=== PATIENT | male | born 2000 | race Hispanic/Latino ===

== ENCOUNTER 2021-10-06 18:36 | Emergency (ER) | payer OTHER ==
--- NOTE | 2021-10-06 20:46 | Emergency Department Report ---
HPI - General Time Seen by Provider: 10/06/21 20:31 - HPI HPI: 21-year-old male with history of ADHD presents due to depression and family issues which are causing him significant distress. The patient states that [facility] and that his family has refused to talk to him or help him. He says he is now currently homeless and feels very depressed and hopeless. He has had fleeting thoughts of SI but denies any plan or active SI at this time. Denies homicidal ideation or hallucinations. He also denies any physical symptoms or complaints of any kind. He is fully vaccinated against COVID-19 but has not yet received a booster. ED Past Medical Hx - Past Medical History Previous Medical History?: Yes Additional medical history: ADHD - Social History Smoking Status: Current Every Day Smoker Substance Use Type: None - Medications Home Medications: Home Medications Medication Instructions Recorded Confirmed Last Taken Type Escitalopram Oxalate [Lexapro] 5 mg PO QDAY 30 Days #30 10/07/21 Unknown Rx ED Review of Systems ROS: Stated complaint: MENTAL HEALTH Other details as noted in HPI Comment: All other systems reviewed and negative Constitutional: denies: chills, fever Eyes: denies: eye pain, vision change ENT: denies: throat pain, congestion Respiratory: denies: cough, shortness of breath Cardiovascular: denies: chest pain, palpitations Gastrointestinal: denies: abdominal pain, nausea, vomiting Genitourinary: denies: dysuria, frequency Musculoskeletal: denies: back pain, arthralgia Skin: denies: rash, lesions Neurological: denies: headache, weakness, numbness Psychiatric: anxiety, depression, suicidal thoughts. denies: auditory hallucinations, visual hallucinations, homicidal thoughts Physical Exam - Physical Exam Vital Signs: Vital Signs 10/06/21 10/06/21 19:00 20:30 Temperature 98.3 F 98.5 F Pulse Rate 69 55 L Respiratory 18 18 Rate Blood Pressure 154/77 121/85 [Left] O2 Sat by Pulse 98 96 Oximetry Physical Exam: GENERAL: Well developed and well nourished. No acute distress. Flat affect. HEAD: Normocephalic. No obvious signs of trauma. ENT: Moist mucous membranes. EYES: Extraocular movements are intact. Pupils are equal round and reactive to light bilaterally NECK: Supple. Full ROM is intact. Trachea is midline. LUNGS: Nonlabored breathing. Equal chest rise bilaterally. Clear to auscultation bilaterally. CARDIOVASCULAR: Regular rate and rhythm. No murmurs or rubs. VASCULAR: Cap refill < 2 seconds ABDOMEN: Abdomen is soft and nondistended. There is no significant tenderness, guarding or rebound. SKIN: Skin is warm and dry NEURO: Patient is awake, alert, and oriented. shoe repairer II-XII grossly intact. No focal deficits. Normal motor and sensory exam throughout. Normal speech. MUSCULOSKELETAL: No obvious deformities. No significant tenderness. Normal ROM throughout. BACK/SPINE: No midline tenderness or step-offs of the C/T/L spine. No costovertebral angle tenderness. ED Course Vital Signs 10/06/21 10/06/21 19:00 20:30 Temperature 98.3 F 98.5 F Pulse Rate 69 55 L Respiratory 18 18 Rate Blood Pressure 154/77 121/85 [Left] O2 Sat by Pulse 98 96 Oximetry ED Medical Decision Making - Lab Data Result diagrams: 10/06/21 20:49 10/06/21 20:49 - Medical Decision Making 21-year-old male presents with depression and hopelessness with fleeting thoughts of suicide without plan. Although he denies wanting to kill himself right now he says he has been having fleeting thoughts of ending his life. He is afebrile and with normal vital signs. His physical examination is within normal limits. Given that the patient has no active SI/HI or hallucinations, I do not feel that 1013 order is appropriate at this time. However, I will place an ED hold and have the patient evaluated by the mental health/psychiatry team for further recommendations regarding disposition once medically cleared. Medical clearance labs have been ordered Labs have resulted and reveal no significant leukocytosis or anemia. Creatinine is within normal range and there are no significant electrolyte abnormalities. The patient is medically clear for psychiatric evaluation I spoke with Sondra the mental health assembler aircraft power plant who was obtained much further history indicating that the patient has expressed and made comments suggesting that he has homicidal ideation as well as suicidal ideation. For this reason I have signed a 1013 order and the patient will be evaluated by the full mental health/psychiatry team in the morning. The patient was seen by the full mental health/psychiatry team and it was determined that he does not meet criteria for inpatient psychiatric treatment. He was therefore discharged home with outpatient resources. Critical care attestation.: If time is entered above; I have spent that time in minutes in the direct care of this critically ill patient, excluding procedure time. ED Disposition Clinical Impression: Homicidal ideation, Suicidal ideation Disposition: 01 HOME / SELF CARE / HOMELESS Is pt being admited?: No Condition: Stable Instructions: Persistent Depressive Disorder, Adult, Suicidal Feelings: How to Help Yourself Additional Instructions: Drink plenty water. Return for problems. Follow-up as directed by psychiatric services and with your family doctor Professional and Agency Contacts To help [facility](04/04) [place] Crisis Line: Suicide Prevention Line: Crisis Text Line: Text START to 751642 Emergency: 911 Outpatient COMMUNITY Behavioral Health Resources: BELINDA: [facility] [address] [place], [place] [address] [facility] [address] [place] [address] [facility] - [address] [place] [address] Tuesday thru Tuesday - 8am - 5pm [facility] Service Address: [address] [place] [address] [facility] Address: [address] [place] [address] Tuesday thru Tuesday- 7am-2pm [facility] Address: [address] [place] [address] Tuesday thru Tuesday: 8:30AM-5PM OUTPATIENT MENTAL HEALTH RESOURCES [facility], [address] [place] [address] KARUNA Leone MD: [address] [place], [place] [id number] [facility]: [address] [place], [place] [id number] [employer] [place], [place] [id number] [phone] [facility]: [address] [facility] [address] [place] [address] [facility] Healthcare: [address] [place] [address] [facility]: [address] [place], [place] Dinh Estrada MD: [address] [facility] [address] [facility]: [address] [facility] [place] [address] [phone] [place] CRISIS AND ACCESS LINE: * Transitional [facility] Providers: Willi Rivera [phone] Address: [address] [place] [address] [place] [address] Mr. Acosta: [phone] Víctor Andrade [phone] Ms. Chatterjee: [phone] Gracie Salud [phone] Ms. Mena [phone] [facility] [phone] Ms. Monroy: [phone] [facility] [phone] [facility] Home: [facility] [phone] HOMELESS RESOURCES: [facility] NEED HELP? If you are in need of help or know someone who does, please contact us at [email or web address] or call [phone], or come to our offices at [address] [place] [address], Tuesday-Tuesday beginning at 8AM. [facility] Males only Admission at 7am Tue to Tue Address: [address] [place] [address] Client Engagement Center [phone] Regular program admission occurs Tuesday through Tuesday at 7:00 am and operates on a first come, first serve basis. Because we cant anticipate program availability in advance and program spots are in high demand, we recommend arriving early. Space fills up fast! Next steps can include: Assignment to a [facility] program bed Connection to and placement in a partner program, or Referral to a partner agency [facility] Admission at 4:30pm daily Address: [address] , [place] [id number] [facility] Admission from 8am to 10am Daily No intake until 09/08/20 Address: [address] [place] [id number] [facility] [employer] [facility] [employer] goal is to take chronically homeless men and help them overcome their barriers, change them as human beings, making them productive and self- sufficient individuals. Each [employer] participant is housed at our facility for up to a year while they participate in transitional work (earning $7.40/hr for 30+ hours per week). All participants renounce dependency and remain drug and alcohol free. Personal support, case management, and workforce training is offered throughout the program. We also provide AA/NA Classes, GED classes, support in obtaining a [employer] driver's licenses, help setting up a bank account, and life skill preparation courses. IF A MAN IS COMMITTED TO BEING CLEAN, TO ADDRESSING THE PAST, AND TO WORKING, WE WILL HELP HIM GET A PIZZAMAKER JOB, TRANSPORTATION AND PERMANENT HOUSING WITHIN A YEAR. [employer] [address] [place], [place] [id number] .[employer]. Prescriptions: Escitalopram Oxalate [Lexapro] 5 mg PO QDAY 30 Days #30 Referrals: PRIMARY CARE, [Primary Care Provider] - 3-5 Days
[2021-10-06 21:10] LABS: Basophils % (Auto) 0.6 % (0.0-1.8); Eosinophils # (Auto) 0.2 K/mm3 (0.0-0.4); Eosinophils % (Auto) 2.3 % (0.0-4.3); Hematocrit 46.9 % (35.5-45.6); Hemoglobin 15.2 gm/dl (11.8-15.2); Lymphocytes # (Auto) 1.7 K/mm3 (1.2-5.4); Lymphocytes % (Auto) 24.5 % (13.4-35.0); Mean Corpuscular HGB Conc 33 % (32-34); Mean Corpuscular Volume 83 fl (84-94); Monocytes # (Auto) 0.6 K/mm3 (0.0-0.8); Monocytes % (Auto) 8.3 % (0.0-7.3); Platelet Count 217 K/mm3 (140-440); Red Blood Count 5.66 M/mm3 (3.65-5.03); Red Cell Distribution Width 14.5 % (13.2-15.2)
[2021-10-06 21:42] LABS: BUN/Creatinine Ratio 14; Blood Urea Nitrogen 13 mg/dL (9-20); Calcium 8.9 mg/dL (8.4-10.2); Hemolysis Index 30
[2021-10-07 09:59] VITALS: BP 132/89
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
[2021-10-07] MEDS ORDERED: ESCITALOPRAM 10 MG TAB PO SCH (11:30)
--- NOTE | 2021-10-07 11:42 | Emergency Department Report ---
Blank Doc - Documentation Documentation: Psychiatric services has seen the patient. They do not recommend acute psychi atric hospitalization. Patient has been medically cleared. There is a plantar safety. Patient was discharged.
== END 2021-10-07 12:16 | disposition home or self-care (01) ==
LOC: ED 18:36
DX: R45.850 Homicidal ideations (principal); R45.851 Suicidal ideations; F17.200 Nicotine dependence, unspecified, uncomplicated; Z20.822 Contact with and (suspected) exposure to COVID-19
CPT/HCPCS: 36415; 80048; 85025; 99283; U0003; 80320; G0480